=== PATIENT | male | born 1960 | race Caucasian/White ===

== ENCOUNTER 2024-03-03 03:15 | Emergency (ER) | payer BC, OTHER ==
[~2024-03-03] VITALS: Ht 182.9 cm; Wt 107.0 kg
[2024-03-03 03:16] VITALS: TEMP 97.3
[2024-03-03] MEDS ORDERED: METOPROLOL 5 MG/5 ML VIAL As Ordered ONE (03:25)
[2024-03-03] MEDS: METOPROLOL 5 MG/5 ML VIAL IV SCH (03:26)
[2024-03-03] MEDS: NS 1,000 ML IV ONE (03:32)
[2024-03-03 03:59] LABS: BASO # 0.1 10^3/uL (0.0-0.2); BASO % 0.6 % (0.0-1.0); EOS # 0.2 10^3/uL (0.0-0.5); EOS % 1.4 % (0.0-3.0); HEMATOCRIT 46.5 % (42.0-52.0); HEMOGLOBIN 15.6 g/dl (13.5-17.5); LYMPH % 29.2 % (24.0-44.0); MEAN CORPUSCULAR HEMOGLOBIN 30.5 pg (27.0-33.0); MEAN CORPUSCULAR HGB CONC 33.5 g/dl (32.0-36.5); MONO # 0.7 10^3/uL (0.0-0.8); MONO % 7.1 % (2.0-8.0); NEUTROPHILS # 6.4 10^3/uL (1.5-8.5); NEUTROPHILS % 61.4 % (36.0-66.0); PLATELET COUNT, AUTOMATED 298 10^3/uL (150-450); RED BLOOD COUNT 5.11 10^6/uL (4.30-6.10); WHITE BLOOD COUNT 10.4 10^3/uL (4.0-10.0)
[2024-03-03 04:15] LABS: BLOOD UREA NITROGEN 23 MG/DL (9-23); CALCIUM LEVEL 9.4 MG/DL (8.3-10.6); CARBON DIOXIDE LEVEL 27 MMOL/L (20-31); CHLORIDE LEVEL 105 MMOL/L (98-107); CREATININE FOR GFR 1.25 MG/DL (0.70-1.30); GLOMERULAR FILTRATION RATE > 60.0 (>49); GLUCOSE, FASTING 148 MG/DL (74-106); MAGNESIUM LEVEL 2.3 MG/DL (1.8-2.4); POTASSIUM SERUM 4.4 MMOL/L (3.5-5.1); SODIUM LEVEL 139 MMOL/L (136-145)
[2024-03-03 04:56] VITALS: BP 115/73
[2024-03-03] MEDS: METOPROLOL TART 25 MG TABLET PO ONE (04:56)
[2024-03-03 05:30] VITALS: BP 116/77
[2024-03-03] MEDS ORDERED: METO1TAB87 PO (05:32)
[2024-03-03 05:45] VITALS: O2SAT 95
== END 2024-03-03 05:53 | disposition home or self-care (01) ==
LOC: M ED 03:15
DX: R00.2 Palpitations (principal); I47.19 Other supraventricular tachycardia; Z79.899 Other long term (current) drug therapy